=== PATIENT | female | born 2000 | race Caucasian/White ===

== ENCOUNTER 2024-04-15 16:15 | Emergency (ER) | payer SELFPAY ==
[~2024-04-15] VITALS: Ht 165.1 cm; Wt 60.0 kg
[2024-04-15 16:22] VITALS: BP 101/56; PULSE 107; RESP 16; TEMP 98.6; O2SAT 98
[2024-04-15] MEDS: LEVETIRACETAM 500MG TABLET PO ONE (16:48)
== END 2024-04-15 19:09 | disposition home or self-care (01) ==
LOC: ER 16:15
DX: F10.129 Alcohol abuse with intoxication, unspecified (principal); Y90.9 Presence of alcohol in blood, level not specified
CPT/HCPCS: 81025; 99283

== ENCOUNTER 2024-06-17 14:31 | Emergency (ER) | payer MEDICAID ==
[~2024-06-17] VITALS: Ht 170.2 cm; Wt 59.0 kg
[2024-06-17 14:35] VITALS: O2SAT 99
[2024-06-17] MEDS ORDERED: LEVETIRACETAM 500MG PREMIX 100 ML IV ONE (15:30)
[2024-06-17] MEDS: LEVETIRACETAM 1000MG PREMIX 100 ML IV NR (15:33)
[2024-06-17 17:50] LABS: CHLORIDE 105 mEq/L (98-107); POTASSIUM 4.8 mEq/L (3.5-5.1); SODIUM 137 mEq/L (136-145)
[2024-06-17 17:52] LABS: CALCIUM 9.4 mg/dL (8.7-10.4); CARBON DIOXIDE 21 mEq/L (21-32); HEMATOCRIT. 44.2 % (36.0-48.0); HEMOGLOBIN. 14.4 g/dL (12.0-16.0); MEAN CORPUSCULAR HEMOGLOBIN 33.1 pg (28.0-32.0); MEAN CORPUSCULAR HGB CONC 32.7 g/dL (31.0-37.0); MEAN CORPUSCULAR VOLUME 101.3 fL (81.0-99.0); MEAN PLATELET VOLUME 8.4 fl (7.4-10.4); PLATELET 218 x1000/uL (130-400); RED BLOOD CELL COUNT 4.36 mill/uL (4.2-5.4); RED CELL DISTRIBUTION WIDTH 13.1 % (11.6-14.6); WHITE BLOOD COUNT 5.7 x1000/uL (4.5-11.0)
[2024-06-17 17:53] LABS: DIFFERENTIAL COMMENT 1
[2024-06-17 17:57] LABS: GLUCOSE 106 mg/dL (70-105); UREA NITROGEN BLOOD 6 mg/dL (9-23)
[2024-06-17 17:59] LABS: ALANINE AMINOTRANSFERASE 54 IU/L (10-49); ALBUMIN 4.4 g/dL (3.2-4.8); ASPARTATE AMINOTRANSFERASE 59 IU/L (<34); BILIRUBIN TOTAL 0.4 mg/dL (0.1-1.0); HCG SCREEN NEGATIVE; PROTEIN TOTAL 7.5 g/dL (6.0-8.3)
[2024-06-17 18:05] LABS: ETHANOL BLOOD < 10 mg/dL (<10)
[2024-06-17] MEDS: SODIUM CHLORIDE 0.9% 1,000 ML IV ONE (18:17)
[2024-06-17 18:35] LABS: PLATELET ESTIMATE NORMAL
[2024-06-17 18:36] LABS: GIANT PLATELETS 1+
[2024-06-17 19:02] VITALS: TEMP 37.61412; O2SAT 100
[2024-06-17 19:06] VITALS: BP 111/56; PULSE 130; RESP 16; TEMP 99.7
[2024-06-17] MEDS ORDERED: LEVE1000 MT (19:30)
== END 2024-06-17 19:34 | disposition left against medical advice (07) ==
LOC: ER 15:08
DX: G40.909 Epilepsy, unspecified, not intractable, without status epilepticus (principal); R00.0 Tachycardia, unspecified
CPT/HCPCS: 80053; 80320; 84703; 83735; 85025; 36415; 96361; 96365; 99284; J1953; J7030; Z7610 ×3; G0480

== ENCOUNTER 2024-06-19 19:13 | Emergency (ER) | payer MEDICAID ==
[~2024-06-19] VITALS: Ht 165.1 cm; Wt 70.0 kg
[~2024-06-19 19:13] MED LIST: LEVE1000 MT
[2024-06-19 19:16] VITALS: TEMP 98.2; O2SAT 100
[2024-06-19] MEDS: LEVETIRACETAM 500MG PREMIX 100 ML IV ONE (20:30)
[2024-06-19 20:38] LABS: BASOPHILS % 0.7 % (0.0-2.0); HEMOGLOBIN. 15.7 g/dL (12.0-16.0); LYMPHOCYTES % 53.6 % (20.0-50.0); MEAN CORPUSCULAR HEMOGLOBIN 33.8 pg (28.0-32.0); MEAN CORPUSCULAR VOLUME 99.5 fL (81.0-99.0); MEAN PLATELET VOLUME 8.2 fl (7.4-10.4); MONOCYTES % 11.9 % (2.0-8.0); NEUTROPHILS % 33.8 % (40.0-76.0); PLATELET 179 x1000/uL (130-400); RED BLOOD CELL COUNT 4.63 mill/uL (4.2-5.4); RED CELL DISTRIBUTION WIDTH 12.9 % (11.6-14.6); WHITE BLOOD COUNT 3.3 x1000/uL (4.5-11.0)
[2024-06-19 20:39] LABS: CHLORIDE 114 mEq/L (98-107)
[2024-06-19 20:40] LABS: CALCIUM 6.9 mg/dL (8.7-10.4); CARBON DIOXIDE 21 mEq/L (21-32)
[2024-06-19 20:45] LABS: GLUCOSE 88 mg/dL (70-105); UREA NITROGEN BLOOD 5 mg/dL (9-23)
[2024-06-19 20:54] LABS: ETHANOL BLOOD 375 mg/dL (<10)
[2024-06-19 21:15] LABS: SODIUM 147 mEq/L (136-145)
[2024-06-19 21:28] LABS: CREATININE 0.5 mg/dL (0.6-1.0); POTASSIUM 2.7 mEq/L (3.5-5.1)
[2024-06-19] MEDS: POTASSIUM CHLORIDE 20MEQ TABLET SR PO ONE (21:30)
[2024-06-19] MEDS: KCL 20MEQ/100ML PREMIX 100 ML IV SCH (21:30)
[2024-06-19 22:14] VITALS: BP 123/67; PULSE 70; RESP 18; O2SAT 100
== END 2024-06-19 22:10 | disposition home or self-care (01) ==
LOC: ER 19:13
DX: F10.129 Alcohol abuse with intoxication, unspecified (principal); R56.9 Unspecified convulsions; E87.6 Hypokalemia; Y90.9 Presence of alcohol in blood, level not specified
CPT/HCPCS: 36415; 80048; 80320; 85025; 99283; G0480